=== PATIENT | female | born 1950 | race Hispanic/Latino ===

== ENCOUNTER 2018-03-23 12:57 | Emergency (ER) | payer OTHER ==
[~2018-03-23] VITALS: Ht 154.9 cm; Wt 81.2 kg
[~2018-03-23 12:57] MED LIST: ALPHAGAN P5 ML OP; ASPIRIN81 MG PO; BP MED; GLUCOTROL XL5 MG PO; LISINOPRIL40 MG PO; METFORMIN HCL1000 MG PO; SIMVASTATIN40 MG PO
[2018-03-23] MEDS ORDERED: ONDANSETRON HCL INJ 2 MG/ML VIAL IV NR (13:36)
[2018-03-23] MEDS ORDERED: SODIUM CHLORIDE 0.9% 1000ML 1,000 ML IV STA (13:36)
[2018-03-23] MEDS ORDERED: PANTOPRAZOLE 40 MG 10ML VIAL IV NR (13:36)
[2018-03-23 13:47] LABS: CLARITY,URINE CLEAR (CLEAR); COLOR,URINE YELLOW (YELLOW)
[2018-03-23 13:48] LABS: BILIRUBIN,URINE NEGATIVE (NEGATIVE); KETONES,URINE NEGATIVE (NEGATIVE); LEUKOCYTE ESTERASE ,URINE NEGATIVE (NEGATIVE); NITRITE,URINE NEGATIVE (NEGATIVE); PROTEIN,URINE DIPSTICK NEGATIVE (NEGATIVE); URINE UROBILINOGEN 0.2 mg/dL (0.2 - 1)
[2018-03-23 13:55] LABS: BACTERIA,URINE RARE /HPF; EPITHELIAL CELLS,URINE FEW /LPF; RBC,URINE 0-5 /HPF (0-5); WBC,URINE (MAN) 0-5 /HPF (0-5)
[2018-03-23] MEDS ORDERED: MORPHINE SULFATE 2 MG/ML SYR IV NR (14:00)
[2018-03-23 14:25] LABS: INR 0.91; PROTHROMBIN TIME 13.1 seconds (11.9-14.5)
[2018-03-23 14:26] LABS: PARTIAL THROMBOPLASTIN TIME 31.3 seconds (23.8-35.5)
[2018-03-23 14:27] LABS: BASOPHILS # (AUTO) 0.1 (0.0-0.1); BASOPHILS % 0.8 % (0.0-1.0); EOSINOPHILS # (AUTO) 0.1 (0.0-0.4); EOSINOPHILS % 2.2 % (0.0-6.0); HEMATOCRIT 35.6 % (34.2-44.1); HEMOGLOBIN 11.6 g/dL (12.0-16.0); LYMPHOCYTES # (AUTO) 0.9 (1.0-3.2); LYMPHOCYTES % 15.1 % (18.0-39.1); MEAN CORPUSCULAR HEMOGLOBIN 28.9 pg (28-32); MEAN CORPUSCULAR HGB CONC 32.6 g/dL (31-35); MEAN CORPUSCULAR VOLUME 88.6 fL (81-99); MONOCYTES # (AUTO) 0.4 (0.2-0.8); MONOCYTES % 6.9 % (4.4-11.3); NEUTROPHILS # (AUTO) 4.4 (2.1-6.9); NEUTROPHILS % 74.3 % (38.7-80.0); PLATELET COUNT 332 x10e3/uL (140-360); RED BLOOD COUNT 4.02 x10e6/uL (3.6-5.1); RED CELL DISTRIBUTION WIDTH 12.2 % (11.7-14.4)
[2018-03-23 14:36] LABS: ALANINE AMINOTRANSFERASE 29 IU/L (0-55); ALBUMIN 3.9 g/dL (3.5-5.0); ALBUMIN/GLOBULIN RATIO 1.2 (0.8-2.0); ALKALINE PHOSPHATASE 80 IU/L (40-150); ANION GAP 16.8 mmol/L (8-16); BLOOD UREA NITROGEN 13 mg/dL (7-26); BUN/CREATININE RATIO 15 (6-25); CALCIUM 9.8 mg/dL (8.4-10.2); CARBON DIOXIDE 24 mmol/L (22-29); CHLORIDE 103 mmol/L (98-107); CREATINE KINASE 118 IU/L (29-168); CREATININE, SERUM 0.84 mg/dL (0.57-1.11); EST GLOMERULAR FILTRATION RATE > 60 ML/MIN (60-); GLUCOSE 90 mg/dL (74-118); MAGNESIUM 1.7 MG/DL (1.3-2.1); POTASSIUM 4.8 mmol/L (3.5-5.1); SODIUM 139 mmol/L (136-145)
[2018-03-23] MEDS ORDERED: SODIUM CHLORIDE 0.9% 50ML 50 ML ONE (16:08)
[2018-03-23] MEDS ORDERED: IOPAMIDOL 370 MG/ML 200 ML INFUS..BTL INJ ONE (16:08)
[2018-03-23] MEDS ORDERED: LATANOPROST2.5 ML OP (16:15)
[2018-03-23] MEDS ORDERED: ATORVASTATIN CA20 MG PO (16:15)
[2018-03-23] MEDS ORDERED: PANTOPRAZOLE SO40 MG PO (16:15)
--- NOTE | 2018-03-23 16:19 | Diagnostic Imaging Report ---
EXAM: CT Abdomen and Pelvis WITH contrast INDICATION: Right lower quadrant pain. Diarrhea. x 10 days. ^RLQ ABD PAIN, DIARRHEA ^[id number] ^1535 COMPARISON: None. TECHNIQUE: Abdomen and pelvis were scanned utilizing a multidetector helical scanner from the lung base to the pubic symphysis after administration of IV contrast. Coronal and sagittal reformations were obtained. Routine protocol was performed. Scan was performed during portal venous phase. IV CONTRAST: 100 mL of Isovue-370 ORAL CONTRAST: Water COMPLICATIONS: None RADIATION DOSE: Total DLP: 637.6 mGy*cm Estimated effective dose: (DLP x 0.015 x size factor) mSv CTDIvol has been reviewed. It is below the limits set by the Radiation Protocol Committee (RPC). Dose modulation, iterative reconstruction, and/or weight based adjustment of the mA/kV was utilized to reduce the radiation dose to as low as reasonably achievable. FINDINGS: LINES and TUBES: None. LOWER THORAX: Unremarkable HEPATOBILIARY: Calcified granuloma in the right hepatic lobe. No focal hepatic lesions. No biliary ductal dilation. GALLBLADDER: Absent SPLEEN: No splenomegaly. PANCREAS: No focal masses or ductal dilatation. ADRENALS: No adrenal nodules . Calcification in the lateral limb of the left adrenal gland may represent prior granulomatous infection or prior hemorrhage. KIDNEYS/URETERS: Kidneys enhance symmetrically. No hydronephrosis. Punctate hypodensity in the superior right renal pole is too small to characterize but probably a cyst. No stones. GI TRACT: No abnormal distention, wall thickening, or evidence of bowel obstruction. Sigmoid colonic diverticula with peridiverticular stranding (series 2 image 69). No abscess or free air. Appendix is not clearly identified. There is however no fat stranding or adenopathy in the right lower quadrant to suggest appendicitis. PELVIC ORGANS/BLADDER: Hysterectomy. No focal bladder wall thickening. LYMPH NODES: No lymphadenopathy. VESSELS: There is mild atherosclerotic disease in the aorta and major arterial branches. PERITONEUM / RETROPERITONEUM: No free air or fluid. BONES: Unremarkable. SOFT TISSUES: Unremarkable. IMPRESSION: Acute uncomplicated diverticulitis of the sigmoid colon. Signed by: DR. Luca Corley MD on 03/23/2018 4:15 PM
--- NOTE | 2018-03-23 16:45 | Diagnostic Imaging Report ---
EXAMINATION: CHEST SINGLE (PORTABLE) INDICATION: Abdominal pain. ^ABD PAIN ^[id number] ^1544 COMPARISON: Same day abdominal CT. FINDINGS: AP view TUBES and LINES: None. LUNGS: Lungs are well inflated. Lungs are clear. There is no evidence of pneumonia or pulmonary edema. PLEURA: No pleural effusion or pneumothorax. HEART AND MEDIASTINUM: The cardiomediastinal silhouette is unremarkable. Aortic arch calcifications. BONES AND SOFT TISSUES: No acute osseous lesion. Soft tissues are unremarkable. UPPER ABDOMEN: No free air under the diaphragm. There are cholecystectomy clips. IMPRESSION: No acute thoracic abnormality. Signed by: DR. Luca Corley MD on 03/23/2018 4:42 PM
[2018-03-23] MEDS ORDERED: CIPRO500 MG PO (16:54)
[2018-03-23] MEDS ORDERED: FLAGYL500 MG PO (16:54)
[2018-03-23] MEDS ORDERED: TYLENOL WITH C1 EACH PO (16:54)
== END 2018-03-23 17:45 | disposition home or self-care (01) ==
LOC: ER 12:57
DX: R10.31 Right lower quadrant pain (principal); K57.32 Diverticulitis of large intestine without perforation or abscess without bleeding; I10 Essential (primary) hypertension; E11.9 Type 2 diabetes mellitus without complications; E78.5 Hyperlipidemia, unspecified
CPT/HCPCS: 36415; 71045; 74177; 80053; 81001; 82550; 82553; 82948; 83605; 83735; 84484; 85025; 85610; 85730; 87086; 99284; J2405; J7030; Q9967; J2270

== ENCOUNTER 2018-04-03 21:01 | Observation (INO) | payer OTHER ==
[~2018-04-03] VITALS: Ht 154.9 cm; Wt 99.4 kg
[~2018-04-03 21:01] MED LIST changes: +ATORVASTATIN CA20 MG PO; +CIPRO500 MG PO; +FLAGYL500 MG PO; +LATANOPROST2.5 ML OP; +PANTOPRAZOLE SO40 MG PO; +TYLENOL WITH C1 EACH PO
--- OUTSIDE RECORDS SUMMARY | 2018-04-03 21:04 | XMS REPORT ---
Author Author [facility] Address Unknown Phone Unavailable Care Team Providers Care Geologic Technician Name Role Phone Kobe ZARAGOZA Unavailable Unavailable Problems This patient has no known problems. Allergies, Adverse Reactions, Alerts This patient has no known allergies or adverse reactions. Medications This patient has no known medications. Results Test Description Test Time Test Comments Text Results Atomic Results Result Comments CHEST SINGLE (PORTABLE) 2018-03-23 16:41:00 [place] [address] Patient Name: PERCY DOYLE MR #: [id number] : 1950 Age/Sex: 68/F Req #: [id number] Adm Physician: Ordered by: THOMAS ZARAGOZA MD Report #: [id number] Location: ER Room/Bed: Procedure: [id number] DX/CHEST SINGLE (PORTABLE) Exam Date: 03/23/18 Exam Time: 1544 REPORT STATUS: Signed EXAMINATION: CHEST SINGLE (PORTABLE) INDIC ATION: Abdominal pain. ABD PAIN [id number] 1544 COMPARISON: Same day abdominal CT. FINDINGS: AP view TUBES and LINES: None. LUNGS: Lungs are well inflated. Lungs are clear. There is no evidence of pneumonia or pulmonary edema. PLEURA: No pleural effusion or pneumothorax. HEART AND MEDIASTINUM: The cardiomediastinal silhouette is unremarkable. Aortic arch calcifications. BONES AND SOFT TISSUES: No acute osseous lesion. Soft tissues are unremarkable. UPPER ABDOMEN: No free air under the diaphragm. There are cholecystectomy clips. IMPRESSION: No acute thoracic abnormality. Signed by: DR. Luca Corley MD on 03/23/2018 4:42 PM Dictated By: LUCA CORLEY MD 41 Transcribed By: SHAHRAM on 03/23/181641 COPY TO: THOMAS ZARAGOZA MD CT ABDOMEN/PELVIS W 2018-03-23 15:56:00 [place] [address] Patient Name: PERCY DOYLE MR #: [id number] : 1950 Age/Sex: 68/F Req #: [id number] Adm Physician: Ordered by: THOMAS ZARAGOZA MD Report #: [id number] Location: ER Room/Bed: Procedure: [id number] CT/CT ABDOMEN/PELVIS W Exam Date: 03/23/18 Exam Time: 1535 REPORT STATUS: Signed EXAM: CT Abdomen and Pelvis WITH contrast INDICATI ON: Right lower quadrant pain. Diarrhea. x 10 days. RLQ ABD PAIN, DIARRHEA [id number] 1535 COMPARISON: None. TECHNIQUE: Abdomen and pelvis were scanned utilizing a multidetector helical scanner from the lung base to the pubic symphysis after administration of IV contrast. Coronal and sagittal reformations were obtained. Routine protocol was performed. Scan was performed during portal venous phase. IV CONTRAST: 100 mL of Isovue-370 ORAL CONTRAST: Water COMPLICATIONS: None RADIATION DOSE: Total DLP: 637.6 mGy*cm Estimated effective dose: (DLP x 0.015 x size factor) mSv CTDIvol has been reviewed. It is below the limits set by the Radiation Protocol Committee (RPC). Dose modulation, iterative reconstruction, and/or weight based adjustment of the mA/kV was utilized to reduce the radiation dose to as low as reasonably achievable. FINDINGS: LINES and TUBES: None. LOWER THORAX: Unremarkable HEPATOBILIARY: Calcified granuloma in the right hepatic lobe. No focal hepatic lesions. No biliary ductal dilation. GALLBLADDER: Absent SPLEEN: No splenomegaly. PANCREAS: No focal masses or ductal dilatation. ADRENALS: No adrenal nodules . Calcification in the lateral limb of the left adrenal gland may represent prior granulomatous infection or prior hemorrhage. KIDNEYS/URETERS: Kidneys enhance symmetrically. No hydronephrosis. Punctate hypodensity in the superior right renal pole is too small to characterize but probably a cyst. No stones. GI TRACT: No abnormal distention, wall thickening, or evidence of bowel obstruction. Sigmoid colonic diverticula with peridiverticular stranding (series 2 image 69). No abscess or free air. Appendix is not clearly identified. There is however no fat stranding or adenopathy in the right lower quadrant to suggest appendicitis. PELVIC ORGANS/BLADDER: Hysterectomy. No focal bladder wall thickening. LYMPH NODE S: No lymphadenopathy. VESSELS: There is mild atherosclerotic disease in the aorta and major arterial branches. PERITONEUM / RETROPERITONEUM: No free air or fluid. BONES: Unremarkable. SOFT TISSUES: Unremarkable. IMPRESSION: Acute uncomplicated diverticulitis of the sigmoid colon. Signed by: DR. Luca Corley MD on 03/23/2018 4:15 PM Dictated By: LUCA CORLEY MD 1618 Transcribed By: SHAHRAM on 03/23/18 1615 COPY TO: THOMAS ZARAGOZA MD
[2018-04-03 22:43] LABS: BILIRUBIN,URINE NEGATIVE (NEGATIVE); CLARITY,URINE CLEAR (CLEAR); COLOR,URINE YELLOW (YELLOW); EPITHELIAL CELLS,URINE FEW /LPF; KETONES,URINE NEGATIVE (NEGATIVE); LEUKOCYTE ESTERASE ,URINE NEGATIVE (NEGATIVE); NITRITE,URINE NEGATIVE (NEGATIVE); PROTEIN,URINE DIPSTICK NEGATIVE (NEGATIVE); RBC,URINE 0-5 /HPF (0-5); URINE UROBILINOGEN 0.2 mg/dL (0.2 - 1); WBC,URINE (MAN) 0-5 /HPF (0-5)
[2018-04-03] MEDS ORDERED: CEFDINIR300 MG PO (23:11)
[2018-04-04] VITALS (8 sets, daily range): BP systolic 165–184; BP diastolic 70–84
[2018-04-04 00:26] LABS: BASOPHILS % 0.2 % (0.0-1.0); EOSINOPHILS # (AUTO) 0.2 (0.0-0.4); EOSINOPHILS % 1.5 % (0.0-6.0); HEMATOCRIT 32.9 % (34.2-44.1); HEMOGLOBIN 11.3 g/dL (12.0-16.0); LYMPHOCYTES # (AUTO) 1.4 (1.0-3.2); LYMPHOCYTES % 12.9 % (18.0-39.1); MEAN CORPUSCULAR HEMOGLOBIN 29.4 pg (28-32); MEAN CORPUSCULAR HGB CONC 34.3 g/dL (31-35); MEAN CORPUSCULAR VOLUME 85.5 fL (81-99); MONOCYTES # (AUTO) 0.8 (0.2-0.8); MONOCYTES % 7.5 % (4.4-11.3); NEUTROPHILS # (AUTO) 8.6 (2.1-6.9); NEUTROPHILS % 77.5 % (38.7-80.0); PLATELET COUNT 303 x10e3/uL (140-360); RED BLOOD COUNT 3.85 x10e6/uL (3.6-5.1)
[2018-04-04 00:50] LABS: ALBUMIN/GLOBULIN RATIO 1.8 (0.8-2.0); ANION GAP 16.9 mmol/L (8-16); CALCIUM 8.4 mg/dL (8.4-10.2); CREATININE, SERUM 2.65 mg/dL (0.57-1.11); POTASSIUM 4.9 mmol/L (3.5-5.1)
[2018-04-04] MEDS ORDERED: HYDRALAZINE HCL 20 MG/ML VIAL IV STA (01:32)
--- NOTE | 2018-04-04 01:42 | Diagnostic Imaging Report ---
EXAM: CT ABDOMEN AND PELVIS without IV CONTRAST INDICATION: Lower abdominal/bladder pain COMPARISON: CT of the abdomen and pelvis with IV contrast March 23, 2018 TECHNIQUE: The abdomen and pelvis were scanned using a multidetector helical scanner. Coronal and sagittal reformations were obtained. Dose modulation, iterative reconstruction, and/or weight based adjustment of the mA/kV was utilized to reduce the radiation dose to as low as reasonably achievable. Routine protocol performed. IV Contrast: None Oral Contrast: None CTDIvol has been reviewed. It is below the limits set by the Radiation Protocol Committee (RPC). FINDINGS: LOWER THORAX: No consolidations LIVER: No masses BILIARY: The gallbladder has been removed. No ductal dilation. SPLEEN: No masses PANCREAS: No masses ADRENALS: Stable coarse calcification associated with the left adrenal gland. RIGHT KIDNEY: No nephroureterolithiasis or hydronephrosis. Interval development of perinephric fat stranding. LEFT KIDNEY: No nephroureterolithiasis or hydronephrosis. Interval development of perinephric fat stranding. GI TRACT: Normal appearance of the small and large bowel. Nonspecific thickening of the gastroesophageal junction and cardia of the stomach. This could be secondary to peristalsis or under distention. VESSELS: Mild atherosclerotic changes of the abdominal aorta without aneurysm. PERITONEUM/RETROPERITONEUM: No free air or fluid LYMPH NODES: No lymphadenopathy REPRODUCTIVE ORGANS: Uterus and ovaries not visualized. BLADDER: Normal SOFT TISSUES: Normal BONES: No suspicious bone lesions. IMPRESSION: Interval development of bilateral perinephric fat stranding. This could represent pyelonephritis in the appropriate clinical setting. No nephroureterolithiasis or hydronephrosis. Interval resolution of sigmoid colon diverticulitis. Signed by: Dr. Shira Joel M.D. on 04/04/2018 1:39 AM
[2018-04-04] MEDS: SODIUM CHLORIDE 0.9% 1000ML 1,000 ML IV SCH ×4 (01:54→22:00)
[2018-04-04] MEDS: CEFTRIAXONE SOD 1 GM VIAL IV SCH (02:13)
--- NOTE | 2018-04-04 10:34 | Diagnostic Imaging Report ---
PROCEDURE:US RETROPERITONEAL ( KIDNEY ). COMPARISON:Patients [facility], CT, CT ABDOMEN/PELVIS WO, 04/04/2018, 1:17. INDICATIONS:ARF TECHNIQUE: Flowers-scale and color sonographic images of the bilateral kidneys and bladder where obtained in transverse and longitudinal planes. FINDINGS: RIGHT KIDNEY: Measures 11.2 x 5.4 x 4.6 cm, cortex measures 2.0 cm Cysts: None Solid masses: None Stones: None Hydronephrosis: None Echogenicity: Normal LEFT KIDNEY: Measures 10.4 x 5.9 x 5.7 cm, cortex measures 2.2 cm Cysts: None Solid masses: None Stones: None Hydronephrosis: None Echogenicity: Normal Bladder: Bilateral ureteral jets are noted. No wall thickening. CONCLUSION: Normal renal ultrasound. Cory Kent D.O. Dictated by: Cory Kent D.O. on 04/04/2018 at 10:43 Electronically approved by: Cory Kent D.O. on 04/04/2018 at 10:43
[2018-04-04 10:55] LABS: ANION GAP 16.2 mmol/L (8-16); CALCIUM 9.1 mg/dL (8.4-10.2); CREATININE, SERUM 2.79 mg/dL (0.57-1.11); POTASSIUM 5.2 mmol/L (3.5-5.1)
[2018-04-04] MEDS ORDERED: DEXTROSE 50% SYRINGE 50 ML IV PRN (11:45)
[2018-04-04] MEDS: INSULIN LISPRO 100 UNIT/1 ML 3ML VIAL SQ SCH ×2 (12:19→20:46)
[2018-04-04] MEDS: NEBIVOLOL 10 MG TAB PO SCH (12:28)
--- NOTE | 2018-04-04 12:35 | Consultation ---
DATE OF CONSULTATION: April 04, 2018 RENAL CONSULTATION HISTORY OF PRESENT ILLNESS: Ms. Leslee Sheffield is a pleasant 68-year-old female with a longstanding history of diabetes and hypertension, at least 15 years each. She has a history of neuropathy. Denies retinopathy. Denies prior history of CVA, kidney disease. Denies any history of OK or malignancy. She is followed by Dr. Marco Antonio Lai as an outpatient. She has had difficulty passing urine, which is why she came to the hospital. She is feeling better now. Workup includes kidney ultrasound, 11.2 and 10.2 cm kidneys. No mention on increased echogenicity. Had a CT scan abdomen and pelvis, shows interval development of bilateral perinephric fat stranding. Other than that, she has no hydronephrosis. This was done without contrast. Laboratory test shows white count 11.3. Hemoglobin 11.3. Labs show potassium 5.2. Sodium 128. Bicarb 20 with a BUN and creatinine of 37 and 2.79 respectively. Patient had a urinalysis done, surprisingly negative for proteins and negative urine microscopy. ALLERGIES: NO APPARENT DRUG ALLERGIES. SOCIAL HISTORY: Patient does not smoke or drink. FAMILY HISTORY: Significant for hypertension and diabetes. PHYSICAL EXAMINATION: GENERAL: Awake, alert, lying supine. No apparent distress. VITALS: Blood pressure of 130/60, pulse rate 80. HEAD AND NECK: Cornea clear. Oral mucosa moist. Neck veins flat. LUNGS: Relatively clear. No rales or rhonchi. HEART: S1, S2 audible. ABDOMEN: Otherwise soft, nontender. LOWER EXTREMITY EXAMINATION: Shows no edema. IMPRESSION/PLAN: 1. Acute kidney injury. Etiology unclear. Urinalysis benign. I will contact Dr. Marco Antonio Lai's office to see if she has had any history of chronic kidney disease. Her globulin level is 2.2. Total protein is normal. Urine microscopy benign. Elevated white count. Urine culture is pending. On empiric antibiotics. Plan on working up with a urine protein-creatinine ratio. Will repeat urinalysis. 2. Hyponatremia. Etiology unclear. Mild metabolic acidosis. I will continue with IV normal saline for now. Etiology of decreased urine output appears unclear since urine is benign. She is not a very good historian. It is possible that she had some urinary retention and perhaps retention overflow. Has distal renal tubular acidosis, likely secondary to diabetes. Will start sodium bicarbonate p.o. Further recommendations to follow. Job#: [id number] EV
--- NOTE | 2018-04-04 14:10 | History and Physical ---
CHIEF COMPLAINT: Acute kidney injury and low sodium level at 121, etiology unclear. Patient is a poor historian but complained of lower back pain. SUMMARY: The patient is a 68-year-old female complaining of lower back pain and unable to urinate. The patient came into the hospital for evaluation. Her sodium level was 121. BUN and creatinine are 34 and 2.6 respectively. The patient is admitted for further evaluation and treatment and nephrology consultation. PAST MEDICAL HISTORY: Possible chronic kidney disease, although the patient denied any history. Diabetes, type 2, on oral hypoglycemic medication. Dyslipidemia. PAST SURGICAL HISTORY: Noncontributory. SOCIAL HISTORY: Patient does not smoke or use alcohol. No recreational drugs. HOME MEDICATIONS: Lipitor, glipizide, lisinopril and metformin. ALLERGIES: NO KNOWN ALLERGIES. REVIEW OF SYSTEMS: As above. PHYSICAL EXAMINATION GENERAL: The patient is not in acute distress. She is awake. VITAL SIGNS: Temperature is 98. Blood pressure 184/78, pulse rate 77. Respirations 18. HEENT: Normocephalic and atraumatic. Anicteric. NECK: Supple grossly. PULMONARY: Diminished breath sounds without any wheezing or rales. CARDIOVASCULAR: S1 and S2. Regular rate and rhythm. ABDOMEN: Soft, unremarkable. EXTREMITIES: No gross cyanosis or edema. NEUROLOGIC: No gross focal deficit. LABORATORY: Sodium is 121, potassium 4.9, chloride 91, bicarb 18. BUN 34, creatinine 2.6. Glucose 85. WBC 11.1, hemoglobin 11.3. Hematocrit 32.9, platelets 303. Urinalysis: Otherwise negative. IMPRESSION 1. Hyponatremia. Sodium level is 121. Etiology unclear. 2. Acute kidney injury versus chronic kidney disease. 3. Baseline hypertension, dyslipidemia and diabetes, type 2, on oral hypoglycemic medications including glipizide and metformin. PLAN: Per Dr. Teodoro Rueda's recommendation. Bicarbonate and IV fluids. CT of the abdomen and pelvis and renal ultrasound did not show any gross obstruction. Possibility that the patient does have diabetes with neuropathy and neurogenic urinary bladder, but that will be worked up during this process. Job#: [id number]
[2018-04-04 16:54] LABS: TOTAL PROTEIN, URINE < 6.8 mg/dL (1-14)
--- NOTE | 2018-04-04 17:20 | Diagnostic Imaging Report ---
EXAMINATION: CHEST 2 VIEWS INDICATION: Acute renal failure COMPARISON: 03/23/2018 FINDINGS: TUBES and LINES: None. LUNGS: Lungs are well inflated. Lungs are clear. There is no evidence of pneumonia or pulmonary edema. PLEURA: No pleural effusion or pneumothorax. HEART AND MEDIASTINUM: The cardiomediastinal silhouette is unremarkable. BONES AND SOFT TISSUES: No acute osseous lesion. Soft tissues are unremarkable. UPPER ABDOMEN: No free air under the diaphragm. IMPRESSION: No acute thoracic abnormality. Signed by: Dr. Farooq Pollack M.D. on 04/04/2018 5:16 PM
[2018-04-04] MEDS: SODIUM BICARBONATE 650 MG TAB PO SCH (18:03)
[2018-04-04] MEDS ORDERED: HYDROCODONE/APAP 5MG-325MG TAB PO PRN (18:15)
[2018-04-04] MEDS: ATORVASTATIN 40 MG TAB PO SCH (20:47)
[2018-04-04] MEDS ORDERED: ATORVASTATIN 20 MG TAB PO SCH (21:00)
[2018-04-05] VITALS (7 sets, daily range): BP systolic 99–175; BP diastolic 51–75
[2018-04-05] MEDS: CEFTRIAXONE SOD 1 GM VIAL IV SCH (02:08)
[2018-04-05 06:07] LABS: BASOPHILS % 0.3 % (0.0-1.0); EOSINOPHILS # (AUTO) 0.1 (0.0-0.4); EOSINOPHILS % 2.1 % (0.0-6.0); HEMATOCRIT 29.6 % (34.2-44.1); HEMOGLOBIN 9.9 g/dL (12.0-16.0); LYMPHOCYTES % 17.4 % (18.0-39.1); MEAN CORPUSCULAR HEMOGLOBIN 29.4 pg (28-32); MEAN CORPUSCULAR HGB CONC 33.4 g/dL (31-35); MEAN CORPUSCULAR VOLUME 87.8 fL (81-99); MONOCYTES # (AUTO) 0.6 (0.2-0.8); NEUTROPHILS # (AUTO) 4.1 (2.1-6.9); NEUTROPHILS % 70.2 % (38.7-80.0); PLATELET COUNT 244 x10e3/uL (140-360); RED BLOOD COUNT 3.37 x10e6/uL (3.6-5.1); RED CELL DISTRIBUTION WIDTH 12.8 % (11.7-14.4)
[2018-04-05 06:27] LABS: ALBUMIN 3.2 g/dL (3.5-5.0); ALBUMIN/GLOBULIN RATIO 1.5 (0.8-2.0); ANION GAP 14.1 mmol/L (8-16); CREATININE, SERUM 2.32 mg/dL (0.57-1.11); MAGNESIUM 1.7 MG/DL (1.3-2.1); PHOSPHORUS 5.5 MG/DL (2.3-4.7); POTASSIUM 5.1 mmol/L (3.5-5.1)
[2018-04-05] MEDS: INSULIN LISPRO 100 UNIT/1 ML 3ML VIAL SQ SCH ×4 (07:30→20:32)
[2018-04-05] MEDS: SODIUM BICARBONATE 650 MG TAB PO SCH ×2 (08:45→17:10)
[2018-04-05] MEDS: NEBIVOLOL 10 MG TAB PO SCH (08:45)
[2018-04-05] MEDS: SODIUM CHLORIDE 0.9% 1000ML 1,000 ML IV SCH ×3 (15:37→23:58)
[2018-04-05] MEDS: ATORVASTATIN 40 MG TAB PO SCH (20:32)
[2018-04-06] VITALS: BP 162/70
[2018-04-06 00:45] VITALS: BP 175/75
[2018-04-06] MEDS: CEFTRIAXONE SOD 1 GM VIAL IV SCH (01:15)
[2018-04-06 04:50] VITALS: BP 161/73
[2018-04-06 05:36] LABS: ANION GAP 16.6 mmol/L (8-16); CREATININE, SERUM 2.02 mg/dL (0.57-1.11); POTASSIUM 4.6 mmol/L (3.5-5.1)
[2018-04-06 07:30] VITALS: BP 186/77
[2018-04-06] MEDS: INSULIN LISPRO 100 UNIT/1 ML 3ML VIAL SQ SCH (07:30)
[2018-04-06 07:51] VITALS: BP 186/77
[2018-04-06] MEDS: SODIUM BICARBONATE 650 MG TAB PO SCH (08:38)
[2018-04-06] MEDS: NEBIVOLOL 10 MG TAB PO SCH (08:38)
[2018-04-06] MEDS ORDERED: NIFEDIPINE CR 30 MG TAB PO NR (09:45)
[2018-04-06 09:52] VITALS: BP 152/82
--- NOTE | 2018-04-07 03:37 | Discharge Summary ---
PRIMARY CARE PHYSICIAN: Dr. Marco Antonio Lai. ATTENDING PHYSICIAN: Dr. Davon Inman. CONSULTANTS 1. Dr. Barrientos. 2. Dr. Teodoro Rueda. FINAL DIAGNOSES: 1. Metabolic acidosis secondary to multifactorial. 2. Chronic kidney disease, stage 4, associated with acute kidney injury secondary to multifactorial. 3. Hyponatremia most likely secondary to overconsumption of water and chronic kidney disease as indicated. 4. Hypoglycemia secondary to multiple oral hypoglycemic medications for diabetes. 5. Elevated potassium, resolved. SUMMARY: Patient is a 68-year-old female who came in with multiple complaints but mostly complaint of weakness. Patient had laboratory workup on admission. Her sodium level was 121. BUN and creatinine of 34 and 2.65 respectively. Patient's albumin level was 4. Lipase was 112. B12 level was 637 on admission. Hemoglobin and hematocrit is 11.3 and 32.9 with WBC of 11. Urinalysis was negative. Urine creatinine was 24. Urine random total protein was less than 6.8. Patient had imaging tests done. Renal ultrasound showed normal renal ultrasound. Patient also had CT scan of the abdomen and pelvis, which showed possible bilateral perinephric fat stranding but no hydronephrosis. The patient was stable. She did not have any fever. Blood pressure was elevated. On admission, blood pressure was 202/93 and pulse rate 76. Blood pressure is much improved now. Her medication has been changed. Patient has received normal saline for low sodium level and also oral bicarb. Her BUN and creatinine today are 40 and 2.0. Her sodium level went up to 143. The patient was on fluid restriction as well. The patient is recommended as follows on discharge. For home medications, she will take Glucotrol XL 2.5 mg daily, Bystolic 10 mg daily, nifedipine XL 30 mg daily, Keflex 500 mg twice a day for 5 days, and sodium bicarbonate 650 mg 2 tablets b.i.d.. The patient is advised to stop the glipizide XL 5 mg twice a day, metformin, and lisinopril. The patient is stable. She is instructed to follow up with Dr. Barrientos and Dr. Teodoro Rueda in approximately [address] Lai next week for referral. Patient's fluid restriction is to 1.2 liters per day, already discussed with the patient's family. Patient is stable and discharged home today. Job#: [id number] SILVANA
== END 2018-04-06 10:24 | disposition home or self-care (01) ==
LOC: ER 21:01 → ERHOLD 04-04 01:18 → MED/SURG3 04-04 02:58
PROVIDERS: ADMIT Internal Medicine; ATTEND Internal Medicine
DX: N17.9 Acute kidney failure, unspecified (principal); E87.1 Hypo-osmolality and hyponatremia; E87.2 Acidosis; N18.4 Chronic kidney disease, stage 4 (severe); I25.10 Atherosclerotic heart disease of native coronary artery without angina pectoris; E78.5 Hyperlipidemia, unspecified; K21.9 Gastro-esophageal reflux disease without esophagitis; Z87.891 Personal history of nicotine dependence; Z83.3 Family history of diabetes mellitus; Z82.49 Family history of ischemic heart disease and other diseases of the circulatory system; Z79.84 Long term (current) use of oral hypoglycemic drugs; E11.22 Type 2 diabetes mellitus with diabetic chronic kidney disease; I12.9 Hypertensive chronic kidney disease with stage 1 through stage 4 chronic kidney disease, or unspecified chronic kidney disease
CPT/HCPCS: 36415 ×3; 71046; 74176; 76770; 80048 ×2; 80053 ×2; 81001; 82570; 82607; 82948 ×3; 83036; 83690; 83735; 84100; 84156; 84443; 85025 ×2; 87086; 99284; G0378 ×3; J0360; J0696 ×3; J7030 ×2

== ENCOUNTER 2020-11-15 16:15 | Emergency (ER) | payer MEDICARE, OTHER ==
[~2020-11-15] VITALS: Ht 154.9 cm; Wt 99.3 kg
[~2020-11-15 16:15] MED LIST changes: +CEFDINIR300 MG PO
[2020-11-15 17:19] LABS: BASOPHILS % 0.5 % (0.0-1.0); EOSINOPHILS # (AUTO) 0.2 (0.0-0.4); EOSINOPHILS % 2.8 % (0.0-6.0); HEMATOCRIT 35.5 % (34.2-44.1); HEMOGLOBIN 11.7 g/dL (12.0-16.0); LYMPHOCYTES # (AUTO) 1.4 (1.0-3.2); LYMPHOCYTES % 18.3 % (18.0-39.1); MEAN CORPUSCULAR HEMOGLOBIN 29.5 pg (28-32); MEAN CORPUSCULAR VOLUME 89.6 fL (81-99); MONOCYTES # (AUTO) 0.5 (0.2-0.8); MONOCYTES % 6.8 % (4.4-11.3); NEUTROPHILS # (AUTO) 5.3 (2.1-6.9); NEUTROPHILS % 70.8 % (38.7-80.0); PLATELET COUNT 279 x10e3/uL (140-360); RED BLOOD COUNT 3.96 x10e6/uL (3.6-5.1); RED CELL DISTRIBUTION WIDTH 12.2 % (11.7-14.4)
[2020-11-15 17:31] LABS: ALANINE AMINOTRANSFERASE 25 IU/L (0-55); ALBUMIN 4.4 g/dL (3.5-5.0); ALBUMIN/GLOBULIN RATIO 1.5 (0.8-2.0); ALKALINE PHOSPHATASE 77 IU/L (40-150); ANION GAP 13.5 mmol/L (8-16); BLOOD UREA NITROGEN 16 mg/dL (7-26); BUN/CREATININE RATIO 17 (6-25); CALCIUM 8.4 mg/dL (8.4-10.2); CARBON DIOXIDE 24 mmol/L (22-29); CHLORIDE 100 mmol/L (98-107); CREATINE KINASE 134 IU/L (29-168); CREATININE, SERUM 0.94 mg/dL (0.57-1.11); EST GLOMERULAR FILTRATION RATE 59 ML/MIN (60-); GLUCOSE 151 mg/dL (74-118); POTASSIUM 4.5 mmol/L (3.5-5.1); SODIUM 133 mmol/L (136-145)
[2020-11-15 18:54] LABS: CLARITY,URINE HAZY (CLEAR); COLOR,URINE YELLOW (YELLOW); KETONES,URINE NEGATIVE (NEGATIVE); LEUKOCYTE ESTERASE ,URINE SMALL (NEGATIVE); NITRITE,URINE NEGATIVE (NEGATIVE); PROTEIN,URINE DIPSTICK NEGATIVE (NEGATIVE); URINE UROBILINOGEN 0.2 mg/dL (0.2 - 1)
[2020-11-15 19:06] LABS: BACTERIA,URINE MANY /HPF
== END 2020-11-15 21:07 | disposition home or self-care (01) ==
LOC: ER 16:58
DX: R20.2 Paresthesia of skin (principal); R07.89 Other chest pain; E11.65 Type 2 diabetes mellitus with hyperglycemia; I10 Essential (primary) hypertension; E78.5 Hyperlipidemia, unspecified; I25.10 Atherosclerotic heart disease of native coronary artery without angina pectoris; K21.9 Gastro-esophageal reflux disease without esophagitis
CPT/HCPCS: 36415; 70450; 71045; 80053; 81001; 82550; 82553; 84484; 85025; 93005; 99283